=== PATIENT | female | born 1950 ===

== ENCOUNTER 2017-11-06 12:53 | Outpatient (CLI) | payer OTHER ==
[~2017-11-06] VITALS: Ht 172.7 cm; Wt 77.1 kg
== END 2017-11-06 13:15 | disposition home or self-care (01) ==
LOC: OFIC 805 12:53
DX: M26.69 Other specified disorders of temporomandibular joint (principal)

== ENCOUNTER 2020-10-24 11:01 | Outpatient (CLI) | payer OTHER | END 2020-10-24 12:50 | disposition home or self-care (01) | LOC: OFIC 805 11:01 | PROVIDERS: ATTEND Otolaryngology Otology & Neurotology | DX: K11.21 Acute sialoadenitis (principal); K11.7 Disturbances of salivary secretion; K11.1 Hypertrophy of salivary gland ==